=== PATIENT | female | born 2000 | race Caucasian/White ===

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

== ENCOUNTER 2018-08-17 14:27 | Emergency (ER) | payer OTHER ==
[2018-08-17 14:31] VITALS: TEMP 98.7; BMI 28.8
--- NOTE | 2018-08-17 15:01 | PDOC ---
History of Present Illness - General Chief Complaint: Lightheaded Stated Complaint: DIZZNESS/ VOMITING Time Seen by Provider: 08/17/18 14:58 - History of Present Illness Initial Comments: The pt is a 18F w/ no reported PMH who presents for evaluation of 1 day of nausea and vomiting after drinking a half bottle of Deb last night. The pt reports 3-4 episodes of vomiting today as well as an addition few that she was told about but cannot recall today. She states she was drinking at home with people she knew. Today she endorses nausea and last vomited 1 hour ago (NBNB). Denies remembering or being told that she fell. Denies pain. She denies fevers/chills, chest pain, SOB, abdominal pain, diarrhea, dysuria, blood in her stool/urine, or changes in sensation. PMH: Denies PSH: Denies Meds: Denies SH: Denies tobacco or illicit drug use PMD: Denies 08/17/18 15:10 Past History - Past Medical History Allergies/Adverse Reactions: Allergies Allergy/AdvReac Type Severity Reaction Status Date / Time No Known Allergies Allergy Verified 08/17/18 14:31 Home Medications: Ambulatory Orders NK [No Known Home Medication] 08/17/18 COPD: No - Immunization History Immunization Up to Date: Yes - Suicide/Smoking/Psychosocial Hx Smoking History: Never smoked Review of Systems - Review of Systems Able to Perform ROS?: Yes Comments:: GENERAL/CONSTITUTIONAL: No fever or chills. No weakness HEAD, EYES, EARS, NOSE AND THROAT: No change in vision or hearing. No sore throat CARDIOVASCULAR: No chest pain or shortness of breath RESPIRATORY: Denies cough, hemoptysis GASTROINTESTINAL: No diarrhea or constipation GENITOURINARY: No dysuria, frequency, or change in urination MUSCULOSKELETAL: No joint or muscle swelling or pain. No neck or back pain SKIN: No rash NEUROLOGIC: No headache, vertigo, or change in strength/sensation ENDOCRINE: No increased thirst. No abnormal weight change HEMATOLOGIC/LYMPHATIC: No anemia, easy bleeding, or history of blood clots ALLERGIC/IMMUNOLOGIC: No hives or skin allergy 08/17/18 15:00 Is the patient limited Hebrew proficient: No *Physical Exam - Vital Signs Last Vital Signs Temp Pulse Resp BP Pulse Ox 98.7 F 105 H 18 158/84 100 08/17/18 14:28 08/17/18 14:28 08/17/18 14:28 08/17/18 14:28 08/17/18 14:28 - Physical Exam Comments: GENERAL: Awake, alert, and oriented to person/place/time, in no acute distress HEAD: No signs of trauma, normocephalic, atraumatic EYES: PERRLA, EOMI, sclera anicteric, conjunctiva clear ENT: Hearing grossly normal, nares patent, oropharynx clear without exudates. Moist mucosa LUNGS: No distress, speaks full sentences, clear to auscultation bilaterally HEART: Regular rate and rhythm, normal S1 and S2, no murmurs appreciated, peripheral pulses normal and equal bilaterally ABDOMEN: Soft, nontender, normoactive bowel sounds. No guarding, no rebound EXTREMITIES: Normal inspection, Normal range of motion, no edema. No clubbing or cyanosis NEUROLOGICAL: Cranial nerves II through XII grossly intact. Normal speech, normal gait, no focal sensorimotor deficits SKIN: Warm, Dry 08/17/18 15:00 Medical Decision Making - Medical Decision Making The pt is a 18F w/ no reported PMH who presents for evaluation of N/V after drinking a half bottle of deb last night ED Course Tachycardic to 105 -Will give 1L NS Zofran 4mg SL and Tylenol 650mg PO once for symptoms Will reassess 08/17/18 15:17 Pt feels improved at this time, will PO challenge U preg pending 08/17/18 17:01 Upreg neg Pt tolerating PO in ED Plan for D/C w/ PCP f/u Discharge instructions and return precautions given Pt in agreement and verbalized understanding Dispo: home 08/17/18 17:24 *DC/Admit/Observation/Transfer Diagnosis at time of Disposition: Nausea & vomiting Qualifiers: Vomiting type: unspecified Vomiting Intractability: non-intractable Qualified Code(s): R11.2 - Nausea with vomiting, unspecified Hangover Qualifiers: Complication of substance-induced condition: uncomplicated Qualified Code(s): F10.120 - Alcohol abuse with intoxication, uncomplicated - Discharge Dispostion Disposition: HOME Condition at time of disposition: Improved Decision to Admit order: No - Referrals Referrals: ON STAFF,NOT [Primary Care Provider] - [facility] [place] [facility] [place] Group] - Patient Instructions Printed Discharge Instructions: How to Beat a Hangover Additional Instructions: You were seen in the Emergency Department for evaluation of nausea and vomiting. You were treated with IV fluids and Zofran. Please review the handout provided at discharge. Return to the Emergency Department if you develop fevers/ chills, are unable to tolerate food/drink, you develop abdominal pain, pain with urination, blood in your urine or stool, worsening symptoms, or any new/ concerning symptoms. - Post Discharge Activity
[2018-08-17] MEDS ORDERED: ONDANSETRON *ODT* 4 MG TABLET SL ONE (15:11)
[2018-08-17] MEDS ORDERED: ACETAMINOPHEN 325 MG TABLET (FP) PO ONE (15:16)
[2018-08-17] MEDS ORDERED: ONDANSETRON 4 MG/2 ML VIAL IVPUSH ONE (15:22)
[2018-08-17] MEDS ORDERED: SODIUM CHLORIDE 0.9% 500 ML INFUS.BAG IV ONE (15:22)
[2018-08-17] MEDS ORDERED: ONDANSETRON 4 MG/2 ML VIAL ONE (15:30)
[2018-08-17] MEDS ORDERED: FAMOTIDINE 20 MG/50 ML IVPB 20 MG/50 ML MG IVPB ONE ×2 (16:08→16:17)
[2018-08-17] MEDS ORDERED: MAG HYDROX/AL HYDROX/SIMETH 30 ML UNIT-DOSE CUP PO ONE (16:08)
[2018-08-17] MEDS ORDERED: MAG HYDROX/AL HYDROX/SIMETH 30 ML UNIT-DOSE CUP ONE (16:17)
--- NOTE | 2018-08-17 16:26 | PDOC ---
Attending Attestation - Resident Resident Name: Gagan Saenz - ED Attending Attestation I have performed the following: I have examined & evaluated the patient, The case was reviewed & discussed with the resident, I agree w/resident's findings & plan, Exceptions are as noted - HPI HPI: 08/17/18 16:24 The patient is a 18 YOF with no PMH who presents for evaluation of nausea and vomiting after drinking last night. Patient admits to having 3 to 4 episodes of nonbloody vomit and nausea today. Patient states she had a half a bottle of Deb last night. Patient notes the vomiting has resolved, last episode was at 2PM. She is currently only complaining of nausea. She is not complaining of any abdominal pain or any other symptoms. She does not usually drink this heavily. Is not a daily drinker. The patient denies chest pain, shortness of breath, headache and dizziness. Denies fever, chills, diarrhea and constipation. Denies dysuria, frequency, urgency and hematuria. Allergies: NKA Past surgical history: None reported. Social history: No reported drug or cigarette use. - Physicial Exam PE: 08/17/18 16:25 GENERAL: Awake, alert, and fully oriented, in no acute distress. HEAD: No signs of trauma EYES: PERRLA, EOMI, sclera anicteric, conjunctiva clear ENT: Auricles normal inspection, hearing grossly normal, nares patent, oropharynx clear without exudates. Moist mucosa NECK: Nontender, no stepoffs, Normal ROM, supple, no lymphadenopathy, JVD, or masses LUNGS: Breath sounds equal, clear to auscultation bilaterally. No wheezes, and no crackles HEART: Regular rate and rhythm, normal S1 and S2, no murmurs, rubs or gallops ABDOMEN: Soft, nontender, normoactive bowel sounds. No guarding, no rebound. No masses EXTREMITIES: Normal range of motion, no edema. No clubbing or cyanosis. No cords, erythema, or tenderness NEUROLOGICAL: Cranial nerves II through XII intact. 5/5 strength and sensation in all extremities, Normal speech, normal gait, normal cerebellar function SKIN: Warm, Dry, normal turgor, no rashes or lesions noted. - Medical Decision Making 08/17/18 16:25 18 F with N+V after drinking heavily last night. Pt with benign exam in ED today. Clinically sober. Suspect ETOH-related nausea/vomiting. No abdominal pain or tenderness to suggest pancreatitis or gastritis. - UPT - IVF, GI cocktail 08/17/18 17:24 UPT negative Pt reassessed - now tolerating PO, nausea resolved Repeat HR 80s Pt is well appearing, with normal vitals. Clinically stable for DC at this time. I discussed the physical exam findings, ancillary test results and final diagnoses with the patient. I answered all of the patient's questions. The patient was satisfied with the care received and felt comfortable with the discharge plan and treatment plan. The patient agrees to follow up with the primary care physician within 24-72 hours.
[2018-08-17 17:26] VITALS: BP 123/77; PULSE 88
== END 2018-08-17 17:35 | disposition home or self-care (01) ==
LOC: JER 14:27
PROC: 3E033GC Introduction of Other Therapeutic Substance into Peripheral Vein, Percutaneous Approach (ICD-10-PCS; principal; 2018-08-17)
PROC: 3E033GC Introduction of Other Therapeutic Substance into Peripheral Vein, Percutaneous Approach (ICD-10-PCS; 2018-08-17)
DX: F10.120 Alcohol abuse with intoxication, uncomplicated (principal)
CPT/HCPCS: 84703; 96365; 96375; 99282-25

== ENCOUNTER 2018-12-07 09:11 | Emergency (ER) | payer BC, OTHER | END 2018-12-07 10:48 | disposition home or self-care (01) | LOC: JERFT 09:11 ==

== ENCOUNTER 2019-02-07 20:34 | Emergency (ER) | payer BC, OTHER ==
[2019-02-07 20:42] VITALS: BP 123/73; PULSE 81; TEMP 98.6; BMI 30.9
--- NOTE | 2019-02-07 21:17 | PDOC ---
History of Present Illness - General Chief Complaint: Pain Stated Complaint: RT BREST PAIN Time Seen by Provider: 02/07/19 20:48 - History of Present Illness Initial Comments: 02/07/19 21:12 18 y/o F with no CM presents for evaluation of R breast pain x5 days without systemic symptoms. Past History - Past Medical History Allergies/Adverse Reactions: Allergies Allergy/AdvReac Type Severity Reaction Status Date / Time No Known Allergies Allergy Verified 12/07/18 09:22 Home Medications: Ambulatory Orders Albuterol Sulfate Inhaler - [Ventolin HFA Inhaler -] 1 - 2 inh PO Q4H #1 inhaler 12/07/18 Cephalexin [Keflex] 500 mg PO QID #40 capsule 02/07/19 Sulfamethoxazole/Trimethoprim [Bactrim Ds -] 1 tab PO BID #14 tablet 02/07/19 COPD: No - Immunization History Immunization Up to Date: Yes - Psycho Social/Smoking Cessation Hx Smoking History: Never smoked Number of Cigarettes Smoked Daily: 1 Review of Systems - Review of Systems Integumentary: Yes: See HPI *Physical Exam - Vital Signs Last Vital Signs Temp Pulse Resp BP Pulse Ox 98.6 F 81 19 123/73 100 02/07/19 20:39 02/07/19 20:39 02/07/19 20:39 02/07/19 20:39 02/07/19 20:39 - Physical Exam Comments: 02/07/19 21:13 Breast examination done with female RN in the room. The R breast has normal skin color and temperature. There is a tender firm area without induration at the 10 and 11 o'clock position just under the axilla. The area is firm deep to the skin without palpable fluctuance. Medical Decision Making - Medical Decision Making 02/07/19 21:14 US not done at night on breast advised pt on warm compresses and ABX. Discharge - Discharge Information Problems reviewed: Yes Clinical Impression/Diagnosis: Breast mass, right Condition: Stable Disposition: HOME - Admission No - Follow up/Referral Referrals: ON STAFF,NOT [Primary Care Provider] - Shubham Ross MD [Staff Physician] - - Patient Discharge Instructions Additional Instructions: Please take the antibiotics as directed. Without fail, please follow up with surgery in 1-2 days. Warm compresses 5-6 times a day as discussed in the emergency room Return to the emergency room should symptoms worsen. - Post Discharge Activity
== END 2019-02-07 20:55 | disposition home or self-care (01) ==
LOC: JERFT 20:34
DX: N63.10 Unspecified lump in the right breast, unspecified quadrant (principal)
CPT/HCPCS: 99281-25

== ENCOUNTER 2019-05-03 00:46 | Emergency (ER) | payer BC, OTHER ==
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
[2019-05-03] MEDS ORDERED: KETOROLAC TROMETHAMINE 60 MG/2 ML VIAL IM ONE (01:46)
[2019-05-03] MEDS ORDERED: KETOROLAC TROMETHAMINE 60 MG/2 ML VIAL ONE (01:48)
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
[2019-05-03 01:53] VITALS: BP 112/79; PULSE 82; TEMP 97.6; BMI 31.8
[2019-05-03] MEDS ORDERED: METHOCARBAMOL 500 MG TABLET PO ONE (01:53)
[2019-05-03] MEDS ORDERED: LIDOCAINE 5% TOPICAL PATCH TP ONE (01:53)
[2019-05-03] MEDS ORDERED: METHOCARBAMOL 500 MG TABLET ONE (02:00)
[2019-05-03] MEDS ORDERED: LIDOCAINE 5% TOPICAL PATCH ONE (02:00)
[2019-05-03] MEDS ORDERED: LIDOCAINE PATCH REMOVAL MC SCH (22:00)
== END 2019-05-03 03:37 | disposition home or self-care (01) ==
LOC: JER 00:46
PROC: 3E0233Z Introduction of Anti-inflammatory into Muscle, Percutaneous Approach (ICD-10-PCS; principal; 2019-05-03)
DX: M54.5 Low back pain (principal); M54.6 Pain in thoracic spine; V43.52XA Car driver injured in collision with other type car in traffic accident, initial encounter; Y92.414 Local residential or business street as the place of occurrence of the external cause; Y93.89 Activity, other specified; Y99.8 Other external cause status
CPT/HCPCS: 99282-25

== ENCOUNTER 2019-07-26 19:54 | Emergency (ER) | payer BC, OTHER ==
[2019-07-26 20:07] VITALS: BP 146/89; PULSE 98; TEMP 98.2; BMI 30.1
--- NOTE | 2019-07-26 20:13 | PDOC ---
History of Present Illness - General Chief Complaint: Vomiting/Diarrhea Stated Complaint: VOMITING Time Seen by Provider: 07/26/19 20:12 History Source: Patient Exam Limitations: No Limitations - History of Present Illness Initial Comments: 07/26/19 20:13 Hermila Merrill is a 19 with PMH asthma presenting with vomiting and diarrhea. Went out drinking a lot of alcohol last night and woke up nauseated today, vomited NBNB 10x and has not been able to tolerate anything PO, has tried to take sips of Gatorade but vomits after. Denies abdominal pain, diarrhea, fevers, chills, VALADEZ. No urinary symptoms, no vaginal discharge or bleeding. No other sick contacts at home, has 2 year old who is not sick. No covid-19 exposures or recent travel. Presents to ED because she feels dehydrated and feels lightheaded. No allergies. Takes MDI for asthma. Past History - Past Medical History Allergies/Adverse Reactions: Allergies Allergy/AdvReac Type Severity Reaction Status Date / Time No Known Allergies Allergy Verified 07/26/19 20:07 Home Medications: Ambulatory Orders Albuterol Sulfate Inhaler - [Ventolin HFA Inhaler -] 1 - 2 inh PO Q4H #1 inhaler 12/07/18 Ibuprofen 600 mg PO Q6H PRN #12 tablet 05/03/19 Lidocaine 5% Patch [Lidoderm Patch -] 1 patch TP DAILY #5 patch 05/03/19 Methocarbamol [Robaxin -] 750 mg PO Q8H PRN #12 tablet 05/03/19 Ondansetron [Zofran *Odt*] 4 mg SL BID #14 od.tablet 07/26/19 Asthma: Yes COPD: No - Immunization History Immunization Up to Date: Yes - Psycho Social/Smoking Cessation Hx Smoking History: Never smoked Have you smoked in the past 12 months: No Number of Cigarettes Smoked Daily: 1 Hx Alcohol Use: No Drug/Substance Use Hx: No Review of Systems - Review of Systems Able to Perform ROS?: Yes Constitutional: No: Chills, Fever HEENTM: No: Symptoms Reported Respiratory: No: Cough, Shortness of Breath, Wheezing Cardiac (ROS): Yes: Lightheadedness. No: Chest Pain, Edema, Irregular Heart Rate, Palpitations, Syncope ABD/GI: Yes: Nausea, Poor Appetite, Poor Fluid Intake, Vomiting. No: Diarrhea, Abdominal cramping : No: Symptoms Reported Musculoskeletal: No: Symptoms Reported Integumentary: No: Symptoms Reported Neurological: No: Symptoms reported Endocrine: No: Symptoms Reported Hematologic/Lymphatic: No: Symptoms Reported All Other Systems: Reviewed and Negative *Physical Exam - Vital Signs Last Vital Signs Temp Pulse Resp BP Pulse Ox 98.2 F 98 H 18 146/89 100 07/26/19 20:01 07/26/19 20:01 07/26/19 20:01 07/26/19 20:01 07/26/19 20:01 - Physical Exam General Appearance: Yes: Nourished, Appropriately Dressed. No: Apparent Distress HEENT: positive: EOMI, CLINT, Normal ENT Inspection, Normal Voice, Symmetrical, Pharynx Normal, Hearing Grossly Normal. negative: Scleral Icterus (R), Scleral Icterus (L), Pharyngeal Erythema, Tonsillar Exudate, Tonsillar Erythema Neck: positive: Tender, Trachea midline, Supple. negative: Lymphadenopathy (R), Lymphadenopathy (L), Tender lateral, Tender midline Respiratory/Chest: positive: Lungs Clear, Normal Breath Sounds. negative: Chest Tender, Respiratory Distress, Accessory Muscle Use, Crackles, Rales, Rhonchi, Stridor, Wheezing Cardiovascular: positive: Regular Rhythm, Regular Rate. negative: Murmur Gastrointestinal/Abdominal: positive: Normal Bowel Sounds, Flat, Soft. negative: Tender, Pulsatile Mass, Decreased BS, Distended, Guarding, Hernia Musculoskeletal: positive: Normal Inspection. negative: CVA Tenderness Extremity: positive: Normal Capillary Refill, Normal Inspection, Pelvis Stable. negative: Tender, Swelling, Calf Tenderness Integumentary: positive: Normal Color, Dry, Warm. negative: Diaphoresis Neurologic: positive: Alert, Normal Mood/Affect, Normal Response ED Treatment Course - LABORATORY CBC & Chemistry Diagram: 07/26/19 20:29 07/26/19 20:29 Medical Decision Making - Medical Decision Making 07/26/19 20:39 Patient presents with N/V and poor PO intake without fever/chills/diarrhea, concerning for gastroenteritis, pancreatitis, and most likely gastritis 2/2 alcohol use. VS notable for mild tachycardia, no concerning findings on exam. Will get labs and rehydrate, then re-evaluate. - CMP/CBC for eval lytes/infection - lipase for eval pancreatitis - serum for eval - 1L NS, Zofran, Pepcid for symptomatic relief 07/26/19 21:30 Labs notable for: - CMP WNL - CBC WNL - lipase <100 - negative No concerning lab abnormalities at this time. 07/26/19 22:06 Tolerating PO, feels better. Stable for D/C home. Discharge - Discharge Information Problems reviewed: Yes Clinical Impression/Diagnosis: Nausea & vomiting Qualifiers: Vomiting type: unspecified Vomiting Intractability: non-intractable Qualified Code(s): R11.2 - Nausea with vomiting, unspecified Condition: Stable Disposition: HOME - Admission No - Additional Discharge Information Prescriptions: Ondansetron [Zofran *Odt*] 4 mg SL BID #14 od.tablet - Follow up/Referral - Patient Discharge Instructions Patient Printed Discharge Instructions: DI for Vomiting -- Adult Additional Instructions: Today you were evaluated for nausea and vomiting. Your blood works do not show any problems. We gave you fluids and a medications called Zofran and Pepcid for your nausea. At home, stay as hydrated as possible and and eat bland foods. Do not drink a large amount of alcohol in the future. Please see your primary doctor in the next week for further care. If you experience worsening nausea, vomiting, diarrhea, fever, or any other new or concerning symptoms, please return to the emergency room. - Post Discharge Activity Work/Back to School Note: Back to Work
[2019-07-26] MEDS ORDERED: FAMOTIDINE 20 MG/50 ML IVPB 20 MG/50 ML MG IVPB ONE (20:26)
[2019-07-26] MEDS ORDERED: ONDANSETRON 4 MG/2 ML VIAL IVPUSH ONE (20:26)
[2019-07-26] MEDS ORDERED: SODIUM CHLORIDE 0.9% 500 ML INFUS.BAG IV ONE (20:26)
[2019-07-26] MEDS ORDERED: ONDANSETRON 4 MG/2 ML VIAL ONE (20:30)
[2019-07-26 20:51] LABS: BASO % 0.2 % (0-2.0); HEMATOCRIT 40.2 % (32.4-45.2); HEMOGLOBIN 13.5 GM/dL (10.7-15.3); MCH 27.9 pg (25.7-33.7); MCHC 33.5 g/dl (32.0-36.0); MEAN CELL VOLUME 83.3 fl (80-96); MONO % 2.2 % (3.8-10.2); NEUT % 89.6 % (42.8-82.8); PLATELET COUNT 261 K/MM3 (134-434); RBC 4.83 M/mm3 (3.60-5.2); WHITE BLOOD COUNT 10.8 K/mm3 (4.0-10.0)
[2019-07-26 21:21] LABS: ALBUMIN 3.9 g/dl (3.4-5.0); BILIRUBIN,TOTAL 0.4 mg/dL (0.2-1); BLOOD UREA NITROGEN 9.8 mg/dL (7-18); CALCIUM 8.9 mg/dL (8.5-10.1); CREATININE 0.7 mg/dL (0.55-1.3); POTASSIUM 4.2 mmol/L (3.5-5.1); TOT PROT 8.6 g/dl (6.4-8.2)
--- NOTE | 2019-07-26 22:04 | PDOC ---
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 She has a 2yo child and she is healthy. SHe ahppened to go out binge drinking with friends yesterday and comes in dehydrated and vomiting Pt has no other complaints. 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 Discharge - Discharge Information Problems reviewed: Yes Clinical Impression/Diagnosis: Nausea & vomiting Qualifiers: Vomiting type: unspecified Vomiting Intractability: non-intractable Qualified Code(s): R11.2 - Nausea with vomiting, unspecified Condition: Stable Disposition: HOME - Additional Discharge Information Prescriptions: Ondansetron [Zofran *Odt*] 4 mg SL BID #14 od.tablet - Follow up/Referral - Patient Discharge Instructions Patient Printed Discharge Instructions: DI for Vomiting -- Adult Additional Instructions: Today you were evaluated for nausea and vomiting. Your blood works do not show any problems. We gave you fluids and a medications called Zofran and Pepcid for your nausea. At home, stay as hydrated as possible and and eat bland foods. Do not drink a large amount of alcohol in the future. Please see your primary doctor in the next week for further care. If you experience worsening nausea, vomiting, diarrhea, fever, or any other new or concerning symptoms, please return to the emergency room. - Post Discharge Activity Work/Back to School Note: Back to Work
== END 2019-07-26 22:00 | disposition home or self-care (01) ==
LOC: JER 19:54
PROC: 3E033GC Introduction of Other Therapeutic Substance into Peripheral Vein, Percutaneous Approach (ICD-10-PCS; principal; 2019-07-26)
PROC: 3E033GC Introduction of Other Therapeutic Substance into Peripheral Vein, Percutaneous Approach (ICD-10-PCS; 2019-07-26)
DX: R11.2 Nausea with vomiting, unspecified (principal); F10.10 Alcohol abuse, uncomplicated; J45.909 Unspecified asthma, uncomplicated
CPT/HCPCS: 36415; 80053; 83690; 84703; 85025; 99284-25